=== PATIENT | male | born 1985 | race African-American/Black ===

== ENCOUNTER 2018-08-14 13:48 | Emergency (ER) | payer OTHER ==
[~2018-08-14] VITALS: Ht 170.2 cm; Wt 96.4 kg
[2018-08-14 13:50] VITALS: TEMP 98.6
[2018-08-14] MEDS ORDERED: CRUTCHES MC (14:52)
[2018-08-14 15:00] VITALS: BP 113/74; PULSE 70
== END 2018-08-14 15:00 | disposition home or self-care (01) ==
LOC: COL.ER 13:48
DX: S89.91XA Unspecified injury of right lower leg, initial encounter (principal); Z98.890 Other specified postprocedural states; X50.0XXA Overexertion from strenuous movement or load, initial encounter; Y93.67 Activity, basketball
CPT/HCPCS: L1846; Q4041